=== PATIENT | female | born 1940 | race African-American/Black ===

== ENCOUNTER 2024-11-23 15:33 | Inpatient (IN) | payer MEDICARE ==
[2024-11-23] MEDS ORDERED: Melatonin 3 MG TAB PO PRN (16:05)
[2024-11-23] MEDS ORDERED: Acetaminophen 325 MG TAB PO PRN (16:05)
[2024-11-23] MEDS ORDERED: Senokot S 8.6-50 MG TAB PO PRN (16:05)
[2024-11-23 17:18] VITALS: BMI 27.2
[2024-11-23 17:34] LABS: #Basophils Less than 0.03 10x3/uL (0.0-0.2); #Eosinophils Less than 0.03 10x3/uL (0.0-0.7); #Monocytes 0.10 10x3/uL (0.11-0.59); #Neutrophils 2.67 10x3/uL (1.40-6.50); %Basophils 0.3 % (0.0-1.0); %Eosinophils 0.0 % (0.0-10.0); %Lymphocytes 10.9 % (21.0-51.0); %Monocytes 3.2 % (0.0-10.0); %Neutrophils 85.3 % (42.0-75.0); Hematocrit 21.8 % (36.0-47.0); Hemoglobin 7.2 g/dL (12.0-16.0); Mean Corpuscular Hemoglobin 31.9 pg (27.0-31.0); Mean Corpuscular Volume 96.5 fL (78.0-98.0); Platelet Count 150 10x3/uL (130-400); Red Blood Cell (RBC) Count 2.26 mill/uL (4.20-5.40); White Blood Cell (WBC) Count 3.13 10x3/uL (4.8-10.8)
[2024-11-23 17:52] LABS: ALT (SGPT) 13 U/L (Less than 34); AST (SGOT) 18 U/L (11-34); Albumin 2.7 g/dL (3.1-4.5); Alkaline Phosphatase 76 U/L (40-110); Anion Gap 16 mmol/L (10-20); BUN (Urea Nitrogen) 25 mg/dL (9.8-20.1); Bilirubin, Total 0.4 mg/dL (0.3-1.2); Calc. Creatinine Clearance 27 mL/min (70-130); Calcium 5.4 mg/dL (7.8-10.44); Carbon Dioxide 17 mmol/L (23-31); Chloride 107 mmol/L (98-107); Globulin 3.0 g/dL (2.4-3.5); Glucose 95 mg/dL (83-110); Magnesium 1.2 mg/dL (1.6-2.6); Potassium 4.3 mmol/L (3.5-5.1); Sodium 136 mmol/L (136-145)
[2024-11-23] MEDS ORDERED: Magnesium Sulfate In Water 4 GM in Premix 1 BAG IVPB SCH (18:00)
[2024-11-23] MEDS: Magnesium 2 GM/50 ML(in water) 2 GM in Premix 1 BAG IVPB SCH (18:52)
[2024-11-23] MEDS: CALCIUM GLUC 1 GM/NS 50 ML 1 GM in Premix 1 BAG IVPB SCH (18:52)
[2024-11-24 05:28] LABS: Anion Gap 12 mmol/L (10-20); BUN (Urea Nitrogen) 24 mg/dL (9.8-20.1); Calc. Creatinine Clearance 30 mL/min (70-130); Calcium 5.4 mg/dL (7.8-10.44); Carbon Dioxide 18 mmol/L (23-31); Chloride 110 mmol/L (98-107); Glucose 92 mg/dL (83-110); Magnesium 1.6 mg/dL (1.6-2.6); Potassium 3.9 mmol/L (3.5-5.1); Sodium 136 mmol/L (136-145)
[2024-11-24 05:47] LABS: Hematocrit 21.7 % (36.0-47.0); Hemoglobin 7.4 g/dL (12.0-16.0); Mean Corpuscular Hemoglobin 32.3 pg (27.0-31.0); Mean Corpuscular Volume 94.8 fL (78.0-98.0); Platelet Count 104 10x3/uL (130-400); Red Blood Cell (RBC) Count 2.29 mill/uL (4.20-5.40); White Blood Cell (WBC) Count 2.41 10x3/uL (4.8-10.8)
[2024-11-24] MEDS: CALCIUM GLUC 1 GM/NS 50 ML 1 GM in Premix 1 BAG IVPB SCH ×2 (06:17→10:10)
[2024-11-24] MEDS: Magnesium 2 GM/50 ML(in water) 2 GM in Premix 1 BAG IVPB SCH (10:10)
[2024-11-24] MEDS: valACYclovir 500 MG TAB PO SCH (10:11)
[2024-11-24] MEDS: Aspirin Chewable 81 MG TAB PO SCH (10:11)
[2024-11-24] MEDS: Enoxaparin 40 MG (0.4 mL) SYRINGE SC SCH (10:12)
[2024-11-24 12:56] VITALS: BMI 27.2
[2024-11-24 17:24] LABS: Calcium 6.5 mg/dL (7.8-10.44)
[2024-11-25 05:19] LABS: ALT (SGPT) 11 U/L (Less than 34); AST (SGOT) 12 U/L (11-34); Albumin 2.6 g/dL (3.1-4.5); Alkaline Phosphatase 72 U/L (40-110); Anion Gap 12 mmol/L (10-20); BUN (Urea Nitrogen) 24 mg/dL (9.8-20.1); Bilirubin, Total 0.5 mg/dL (0.3-1.2); Calc. Creatinine Clearance 32 mL/min (70-130); Calcium 6.3 mg/dL (7.8-10.44); Carbon Dioxide 19 mmol/L (23-31); Chloride 112 mmol/L (98-107); Globulin 2.8 g/dL (2.4-3.5); Glucose 101 mg/dL (83-110); Magnesium 1.7 mg/dL (1.6-2.6); Potassium 5.0 mmol/L (3.5-5.1); Sodium 138 mmol/L (136-145)
[2024-11-25 05:40] LABS: #Basophils Less than 0.03 10x3/uL (0.0-0.2); #Eosinophils 0.06 10x3/uL (0.0-0.7); #Monocytes 0.07 10x3/uL (0.11-0.59); #Neutrophils 1.98 10x3/uL (1.40-6.50); %Basophils 0.4 % (0.0-1.0); %Eosinophils 2.7 % (0.0-10.0); %Lymphocytes 5.3 % (21.0-51.0); %Monocytes 3.1 % (0.0-10.0); %Neutrophils 87.6 % (42.0-75.0); Hematocrit 23.9 % (36.0-47.0); Hemoglobin 7.9 g/dL (12.0-16.0); Mean Corpuscular Hemoglobin 31.9 pg (27.0-31.0); Mean Corpuscular Volume 96.4 fL (78.0-98.0); Platelet Count 97 10x3/uL (130-400); Red Blood Cell (RBC) Count 2.48 mill/uL (4.20-5.40); White Blood Cell (WBC) Count 2.26 10x3/uL (4.8-10.8)
[2024-11-25] MEDS: CALCIUM GLUC 1 GM/NS 50 ML 1 GM in Premix 1 BAG IVPB SCH ×2 (06:14→09:14)
[2024-11-25] MEDS: Enoxaparin 30 MG (0.3 mL) SYRINGE SC SCH (09:14)
[2024-11-25] MEDS: Calcium Carbonate 500 MG ChewTAB PO SCH (11:20)
[2024-11-26 04:56] LABS: Hematocrit 24.5 % (36.0-47.0); Hemoglobin 7.9 g/dL (12.0-16.0); Mean Corpuscular Hemoglobin 31.3 pg (27.0-31.0); Mean Corpuscular Volume 97.2 fL (78.0-98.0); Platelet Count 101 10x3/uL (130-400); Red Blood Cell (RBC) Count 2.52 mill/uL (4.20-5.40); White Blood Cell (WBC) Count 2.96 10x3/uL (4.8-10.8)
[2024-11-26 05:25] LABS: Anion Gap 10 mmol/L (10-20); Calcium 7.1 mg/dL (7.8-10.44); Carbon Dioxide 18 mmol/L (23-31); Chloride 111 mmol/L (98-107); Potassium 4.5 mmol/L (3.5-5.1); Sodium 134 mmol/L (136-145)
[2024-11-26 05:44] LABS: Platelet Adequacy Comment Platelets Decreased; RBC Morphology Within Normal Limits; Smudge Cells 7.6 %
[2024-11-26 06:05] LABS: ALT (SGPT) 10 U/L (Less than 34); AST (SGOT) 12 U/L (11-34); Albumin 2.5 g/dL (3.1-4.5); Alkaline Phosphatase 71 U/L (40-110); BUN (Urea Nitrogen) 20 mg/dL (9.8-20.1); Bilirubin, Total 0.6 mg/dL (0.3-1.2); Calc. Creatinine Clearance 37 mL/min (70-130); Globulin 3.0 g/dL (2.4-3.5); Glucose 88 mg/dL (83-110); Magnesium 1.4 mg/dL (1.6-2.6)
[2024-11-27 04:52] LABS: Hematocrit 22.2 % (36.0-47.0); Hemoglobin 7.3 g/dL (12.0-16.0); Mean Corpuscular Hemoglobin 31.9 pg (27.0-31.0); Mean Corpuscular Volume 96.9 fL (78.0-98.0); Platelet Count 110 10x3/uL (130-400); Red Blood Cell (RBC) Count 2.29 mill/uL (4.20-5.40); White Blood Cell (WBC) Count 3.15 10x3/uL (4.8-10.8)
[2024-11-27 05:58] LABS: Anisocytosis SLIGHT = 6-15 cells HPF (0-5); Macrocytosis SLIGHT = 6-15 cells HPF (0-5); Platelet Adequacy Comment Platelets Decreased; Smudge Cells 2.0 %
[2024-11-27 08:01] LABS: Hematocrit 23.0 % (36.0-47.0); Hemoglobin 7.6 g/dL (12.0-16.0); Mean Corpuscular Hemoglobin 32.1 pg (27.0-31.0); Mean Corpuscular Volume 97.0 fL (78.0-98.0); Platelet Count 118 10x3/uL (130-400); Red Blood Cell (RBC) Count 2.37 mill/uL (4.20-5.40); White Blood Cell (WBC) Count 2.97 10x3/uL (4.8-10.8)
[2024-11-27 08:20] LABS: Anisocytosis SLIGHT = 6-15 cells HPF (0-5); Macrocytosis SLIGHT = 6-15 cells HPF (0-5); Ovalocytes SLIGHT = 2-5 cells HPF (0-1); Platelet Adequacy Comment Platelets Decreased
[2024-11-27 08:21] LABS: #Basophils Less than 0.03 10x3/uL (0.0-0.2); #Eosinophils 0.14 10x3/uL (0.0-0.7); #Monocytes 0.16 10x3/uL (0.11-0.59); #Neutrophils 2.25 10x3/uL (1.40-6.50); %Basophils 0.3 % (0.0-1.0); %Eosinophils 5.1 % (0.0-10.0); %Lymphocytes 14.6 % (21.0-51.0); %Monocytes 5.3 % (0.0-10.0); %Neutrophils 74.8 % (42.0-75.0)
[2024-11-27 08:23] LABS: Anion Gap 11 mmol/L (10-20); BUN (Urea Nitrogen) 20 mg/dL (9.8-20.1); Calc. Creatinine Clearance 38 mL/min (70-130); Calcium 7.3 mg/dL (7.8-10.44); Carbon Dioxide 19 mmol/L (23-31); Chloride 110 mmol/L (98-107); Glucose 91 mg/dL (83-110); Magnesium 1.4 mg/dL (1.6-2.6); Potassium 4.5 mmol/L (3.5-5.1); Sodium 135 mmol/L (136-145)
[2024-11-27 09:13] VITALS: BP 146/81; TEMP 97.9
[2024-11-27] MEDS: Magnesium 2 GM/50 ML(in water) 2 GM in Premix 1 BAG IVPB SCH (10:46)
[2024-11-28 12:13] LABS: Calcitriol (1,25 di-OH Vit D) 126.0 pg/mL (24.8-81.5)
== END 2024-11-27 13:40 | disposition home or self-care (01) | DRG 640 ==
LOC: MSONC 15:33 → OBSVTOIN 16:02
PROVIDERS: ADMIT Hospitalist; ATTEND Internal Medicine
DX: E83.51 Hypocalcemia (principal); E43 Unspecified severe protein-calorie malnutrition; C90.00 Multiple myeloma not having achieved remission; N17.9 Acute kidney failure, unspecified; I10 Essential (primary) hypertension; E78.5 Hyperlipidemia, unspecified; D63.1 Anemia in chronic kidney disease; Z79.899 Other long term (current) drug therapy; Z68.27 Body mass index [BMI] 27.0-27.9, adult; E83.52 Hypercalcemia; I12.9 Hypertensive chronic kidney disease with stage 1 through stage 4 chronic kidney disease, or unspecified chronic kidney disease; N18.30 Chronic kidney disease, stage 3 unspecified; Z68.28 Body mass index [BMI] 28.0-28.9, adult; Z98.890 Other specified postprocedural states; Z90.49 Acquired absence of other specified parts of digestive tract; Z79.82 Long term (current) use of aspirin; Z92.3 Personal history of irradiation
CPT/HCPCS: 36415; 80048; 80053; 82040; 82306; 82330; 82652; 83615; 83735; 83883; 83970; 84100; 84155; 84165; 84550; 85025; 86850; 86880; 86900; 86901; 86905; 86970; 93005; 93010; 96372; 96374; 96375; G0378; J0613; J0630; J2270; J2272; J3475; J3489; J7120

== ENCOUNTER 2025-01-17 09:21 | Emergency (ER) | payer MEDICARE ==
[2025-01-17 10:02] LABS: #Basophils 0.03 10x3/uL (0.0-0.2); #Eosinophils 0.14 10x3/uL (0.0-0.7); #Monocytes 0.58 10x3/uL (0.11-0.59); #Neutrophils 3.09 10x3/uL (1.40-6.50); %Basophils 0.6 % (0.0-1.0); %Eosinophils 3.0 % (0.0-10.0); %Lymphocytes 16.5 % (21.0-51.0); %Monocytes 12.6 % (0.0-10.0); %Neutrophils 66.9 % (42.0-75.0); Hematocrit 30.7 % (36.0-47.0); Hemoglobin 9.4 g/dL (12.0-16.0); Mean Corpuscular Hemoglobin 31.8 pg (27.0-31.0); Mean Corpuscular Volume 103.7 fL (78.0-98.0); Platelet Count 183 10x3/uL (130-400); Red Blood Cell (RBC) Count 2.96 mill/uL (4.20-5.40); White Blood Cell (WBC) Count 4.62 10x3/uL (4.8-10.8)
[2025-01-17 10:22] LABS: ALT (SGPT) 7 U/L (Less than 34); AST (SGOT) 15 U/L (11-34); Albumin 3.5 g/dL (3.1-4.5); Alkaline Phosphatase 84 U/L (40-110); Anion Gap 12 mmol/L (10-20); BUN (Urea Nitrogen) 20 mg/dL (9.8-20.1); Bilirubin, Total 0.6 mg/dL (0.3-1.2); Calc. Creatinine Clearance 0 mL/min (70-130); Calcium 8.2 mg/dL (7.8-10.44); Carbon Dioxide 21 mmol/L (23-31); Chloride 109 mmol/L (98-107); Globulin 2.7 g/dL (2.4-3.5); Glucose 105 mg/dL (83-110); Potassium 5.1 mmol/L (3.5-5.1); Sodium 137 mmol/L (136-145)
[2025-01-17] MEDS ORDERED: Iopamidol-370 76% 500 ML MDV (1 ML CHARGE) ONE (14:19)
[2025-01-17 18:41] LABS: RBC Count-Automated (BF) 229635 /cu.mm; WBC/Nucleated-Auto (BF) 9861 /cu.mm
[2025-01-17 18:59] LABS: Fluid, pH - Pleural Fld 7.268 (7.60 - 7.66)
[2025-01-17 19:14] LABS: Fluid, Triglycerides 28.0 mg/dL (Not Available); Pleural Fluid, Amylase 48.0 U/L (Not Available); Pleural Fluid, Glucose 47.0 mg/dL; Pleural Fluid, LDH 617.0 U/L (Not Available); Pleural Fluid, Protein 4.5 g/dL
[2025-01-17 19:54] LABS: BF Segmented Neutrophils 40 %; Cell Count Non Hematic 34 %
[2025-01-17 20:00] LABS: ALT (SGPT) Less than 7 U/L (Less than 34); AST (SGOT) 24 U/L (11-34); Albumin 3.1 g/dL (3.1-4.5); Alkaline Phosphatase 75 U/L (40-110); Anion Gap 14 mmol/L (10-20); BUN (Urea Nitrogen) 18 mg/dL (9.8-20.1); Bilirubin, Total 0.4 mg/dL (0.3-1.2); Calc. Creatinine Clearance 0 mL/min (70-130); Calcium 8.1 mg/dL (7.8-10.44); Carbon Dioxide 16 mmol/L (23-31); Chloride 110 mmol/L (98-107); Globulin 2.8 g/dL (2.4-3.5); Glucose 110 mg/dL (83-110); Potassium 4.9 mmol/L (3.5-5.1); Sodium 135 mmol/L (136-145)
== END 2025-01-17 21:20 | disposition home or self-care (01) ==
LOC: ERS 09:21
DX: J90 Pleural effusion, not elsewhere classified (principal); Z98.3 Post therapeutic collapse of lung status
CPT/HCPCS: 36415; 71045; 71046; 71250; 71275; 74177; 80053; 82150; 82945; 83615; 83880; 83986; 84157; 84478; 84484; 85025; 85060; 87116; 87206; 89051; 93005

== ENCOUNTER 2025-02-01 13:36 | Outpatient (CLI) | payer MEDICARE | END 2025-02-01 13:37 | disposition home or self-care (01) | LOC: RAD 13:36 | PROVIDERS: ATTEND Internal Medicine | DX: R91.8 Other nonspecific abnormal finding of lung field (principal); J90 Pleural effusion, not elsewhere classified; J98.11 Atelectasis; I51.7 Cardiomegaly | CPT/HCPCS: 71046 ==

== ENCOUNTER 2025-02-02 17:04 | Outpatient (CLI) | payer MEDICARE | END 2025-02-02 17:05 | disposition home or self-care (01) | LOC: PET 17:04 | PROVIDERS: ATTEND Internal Medicine Hematology & Oncology | DX: C90.00 Multiple myeloma not having achieved remission (principal); C79.51 Secondary malignant neoplasm of bone; R59.0 Localized enlarged lymph nodes; M89.9 Disorder of bone, unspecified; R91.8 Other nonspecific abnormal finding of lung field | CPT/HCPCS: 78816; A9552 ==

== ENCOUNTER 2025-02-08 05:48 | Inpatient (IN) | payer MEDICARE ==
[2025-02-08] MEDS ORDERED: Bupivacaine 0.25% HCL 30 ML VIAL ONE (06:54)
[2025-02-08] MEDS ORDERED: Ondansetron PF 4 MG/2 ML Vial ONE (07:02)
[2025-02-08] MEDS ORDERED: Rocuronium Bromide 10 MG/ML (10ML VIAL) ONE (07:02)
[2025-02-08] MEDS ORDERED: fentaNYL PF 100 MCG/2 ML SYRINGE ONE (07:02)
[2025-02-08] MEDS ORDERED: Lidocaine 1% PF 5 ML VIAL ONE (07:02)
[2025-02-08] MEDS ORDERED: PROPOFOL 20 ML ONE (07:03)
[2025-02-08] MEDS ORDERED: Ketamine In 0.9 % NaCl 50 MG/5 ML SYRINGE ONE (07:03)
[2025-02-08] MEDS ORDERED: Lidocaine 2% 6 ML (Jelly) SYR ONE (07:09)
[2025-02-08] MEDS ORDERED: CEFAZOLIN 2 GM VIAL ONE (07:33)
[2025-02-08] MEDS ORDERED: Calcium Chloride 1 GM/10 ML Abboject SYRINGE ONE (08:05)
[2025-02-08] MEDS ORDERED: Glycopyrrolate 0.2 MG/ML 5 ML SYRINGE ONE (08:05)
[2025-02-08] MEDS ORDERED: Albuterol HFA (OR) 200 PUFF INH ONE (08:05)
[2025-02-08] MEDS ORDERED: SUGAMMADEX SODIUM 200 MG/2 ML VIAL ONE ×2 (09:07→09:27)
[2025-02-08] MEDS ORDERED: HYDROcodone/Acetaminophen 5/325 mg Tablet PO PRN (09:23)
[2025-02-08] MEDS ORDERED: Ondansetron PF 4 MG/2 ML Vial IVP PRN (09:23)
[2025-02-08 14:40] VITALS: BMI 28.0
[2025-02-08 15:33] LABS: #Basophils Less than 0.03 10x3/uL (0.0-0.2); #Eosinophils Less than 0.03 10x3/uL (0.0-0.7); #Monocytes 0.41 10x3/uL (0.11-0.59); #Neutrophils 4.77 10x3/uL (1.40-6.50); %Basophils 0.2 % (0.0-1.0); %Eosinophils 0.0 % (0.0-10.0); %Lymphocytes 3.0 % (21.0-51.0); %Monocytes 7.6 % (0.0-10.0); %Neutrophils 88.6 % (42.0-75.0); Hematocrit 26.6 % (36.0-47.0); Hemoglobin 8.2 g/dL (12.0-16.0); Mean Corpuscular Hemoglobin 30.6 pg (27.0-31.0); Mean Corpuscular Volume 99.3 fL (78.0-98.0); Platelet Count 258 10x3/uL (130-400); Red Blood Cell (RBC) Count 2.68 mill/uL (4.20-5.40); White Blood Cell (WBC) Count 5.38 10x3/uL (4.8-10.8)
[2025-02-08 15:37] LABS: Anion Gap 16 mmol/L (10-20); BUN (Urea Nitrogen) 20 mg/dL (9.8-20.1); Calc. Creatinine Clearance 36 mL/min (70-130); Calcium 7.8 mg/dL (7.8-10.44); Carbon Dioxide 16 mmol/L (23-31); Chloride 111 mmol/L (98-107); Glucose 125 mg/dL (83-110); Potassium 4.6 mmol/L (3.5-5.1); Sodium 138 mmol/L (136-145)
[2025-02-08] MEDS: Acetaminophen 325 MG TAB PO SCH (16:00)
[2025-02-08] MEDS: Ketorolac Tromethamine 30 MG (1 mL) VIAL IVP SCH (16:00)
[2025-02-09 15:13] VITALS: BMI 28.0
[2025-02-10 08:02] VITALS: BP 129/76; TEMP 97.6
== END 2025-02-10 11:30 | disposition home or self-care (01) | DRG 164 ==
LOC: SDC 05:48 → PCU 13:08
PROVIDERS: ADMIT Student in an Organized Health Care Education/Training Program; ATTEND Student in an Organized Health Care Education/Training Program
PROC: 0BBP4ZX Excision of Left Pleura, Percutaneous Endoscopic Approach, Diagnostic (ICD-10-PCS; principal; 2025-02-08)
PROC: 0BNG4ZZ Release Left Upper Lung Lobe, Percutaneous Endoscopic Approach (ICD-10-PCS; 2025-02-08)
PROC: 0B9P40Z Drainage of Left Pleura with Drainage Device, Percutaneous Endoscopic Approach (ICD-10-PCS; 2025-02-08)
PROC: 3E03329 Introduction of Other Anti-infective into Peripheral Vein, Percutaneous Approach (ICD-10-PCS; 2025-02-08)
DX: C38.4 Malignant neoplasm of pleura (principal); C41.9 Malignant neoplasm of bone and articular cartilage, unspecified; C90.00 Multiple myeloma not having achieved remission; J91.0 Malignant pleural effusion; R22.2 Localized swelling, mass and lump, trunk; Z98.890 Other specified postprocedural states; Z79.82 Long term (current) use of aspirin; Z79.899 Other long term (current) drug therapy; Z90.710 Acquired absence of both cervix and uterus; Z97.2 Presence of dental prosthetic device (complete) (partial); J98.4 Other disorders of lung; I10 Essential (primary) hypertension; Z90.49 Acquired absence of other specified parts of digestive tract
CPT/HCPCS: 36415; 71045; 80048; 85025; 88112; 88305; 88341; 88342; 88365; A7048; J0169; J0665; J1100; J1885; J2704; J3010; J3490